=== PATIENT | female | born 1975 | race Caucasian/White ===

== ENCOUNTER 2020-05-25 08:21 | Outpatient (CLI) | payer BC, SELFPAY ==
--- NOTE | 2020-05-25 08:24 | ECG_ITS ---
Measurements Intervals [place] Rate: 69 P: 55 MN: 146 QRS: 7 QRSD: 93 T: 30 QT: 374 QTc: 403 Interpretive Statements SINUS RHYTHM NORMAL ECG Electronically Signed On 05-25-2020 8:34:58 CDT by Iván Funes D.O.
== END 2020-05-25 08:22 | disposition home or self-care (01) ==
LOC: ANHSURGERY 08:24
PROVIDERS: PCP Family Medicine; Visit Provider Podiatrist Foot & Ankle Surgery
DX: Z01.818 Encounter for other preprocedural examination (principal); Z87.891 Personal history of nicotine dependence
CPT/HCPCS: 93005

== ENCOUNTER 2020-05-27 00:59 | Outpatient (CLI) | payer BC, SELFPAY ==
[2020-05-27 18:19] LABS: SARS-CoV-2 RNA PCR Negative
== END 2020-05-27 01:00 | disposition home or self-care (01) ==
LOC: ANHCOVIDDT 00:59
PROVIDERS: PCP Family Medicine; Visit Provider Podiatrist Foot & Ankle Surgery
DX: Z01.812 Encounter for preprocedural laboratory examination (principal); Z20.828 Contact with and (suspected) exposure to other viral communicable diseases
CPT/HCPCS: 87635; C9803; U0003

== ENCOUNTER 2020-05-29 01:53 | Day surgery (SDC) | payer BC, SELFPAY ==
[2020-05-19 08:47] VITALS: BMI 42.0
--- NOTE | 2020-05-28 11:30 | WPDANESEPPF ---
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,Hallux Valgus Patient Data Age: 44 Gender: F Height: 1.63 m Weight: 111.13 kg Allergies Allergy/AdvReac Type Severity Reaction Status Date / Time No Known Allergies Allergy Unverified 05/19/20 08:48 Home Medications Medication Instructions Recorded Confirmed Type ergocalciferol (vitamin D2) 1,250 1,250 mcg PO WEEKLY #14 cap 11/26/19 05/19/20 Rx mcg (50,000 unit) capsule buspirone 5 mg tablet 10 mg PO TID #180 tablet 04/22/20 05/19/20 Rx Patient hx anesthesia problems: none Family hx anesthesia problems: none PMFSH Past Medical History Medical History (Updated 05/28/20 @ 11:30 by Mikey Odonnell DO) Alopecia (capitis) totalis SWETA (generalized anxiety disorder) Hearing loss of both ears Hyperlipidemia Panic disorder Psoriasis of scalp Surgical History Surgical History (Updated 11/11/19 @ 14:00 by Mariel Khoury) Hx of cholecystectomy Family History Family History (Updated 11/11/19 @ 13:55 by Mariel Khoury) Mother Hypertension Family history of elevated blood lipids Family history of diabetes mellitus in first degree relative Father , 63 yrs old Hemodialysis catheter infection Social History Social History (Updated 11/11/19 @ 13:51 by Mariel Khoury) Social History: Smoking packs per day: 1 Smoking cigarettes per day: 20.0 Years smoked: 24 Smoking pack-years: 24.00 Smoking status: Current every day smoker Tobacco type: cigarettes Second hand tobacco smoke exposure: Yes Alcohol intake: never Substance use: current Substance use type: marijuana Last use: 05/18/20 Gender identity (if verbalized by the patient): Female Spiritual care concerns: No Anes - Eval Final PreProcedure Day of Procedure 05/28/20 11:30 Patient weight: morbidly obese Heart: regular rate and rhythm Lungs: clear to auscultation and normal air movement Airway: Mallampati scale class II Neurological: alert and oriented Last oral intake: >/= 8 hours ASA classification: III Emergent: no Anesthetic plan: proceed Anesthesia type and monitoring: general GIVS and standard monitoring Informed Consent: The patient's anesthetic plan and its attendant risks and benefits were discussed with the patient/family/POA. Questions were solicited and answers provided to the satisfaction of the patient/family/POA.
[2020-05-29] VITALS (7 sets, daily range): BP systolic 119–150; BP diastolic 67–96; PULSE 70–99; RESP 14–20; TEMP 36.2–36.3; O2SAT 94–100
--- NOTE | ~2020-05-29 | XR_ITS ---
EXAMINATION: XR surgery orthopedic DATE: 05/29/2020 08:23 INDICATION: Right foot arthrodesis TECHNIQUE: Single dorsal plantar fluoroscopic spot image of the right forefoot was obtained during pr ocedure performed by Dr. Ruano. Radiologist was not present for the imaging or procedure. The amou nt of fluoroscopy time used during this procedure was 0.1 minutes. COMPARISON: None. FINDINGS: Shortening osteotomy across the neck of the right second metatarsal which is fixed with a pair of scr ews. There is secondary mild widening of the metacarpophalangeal joint with expected small amount of intra-articular and adjacent soft tissue gas. Second proximal interphalangeal joint arthrodesis with osteotomies at the head and base of the proximal and middle phalanges respectively. A fixation device spans the joint space. Alignment of the second ray appears essentially anatomic on the provided proj ection. Expected small amount of surrounding soft tissue gas. Normal alignment and joint spaces and r emainder of the visualized forefoot. No fracture. IMPRESSION: 1. Expected appearance post second proximal interphalangeal joint arthrodesis and shortening osteotom y at the neck of the second metatarsal. Reviewed, dictated and finalized at location A. IMPRESSION: 1. Expected appearance post second proximal interphalangeal joint arthrodesis a nd shortening osteotomy at the neck of the second metatarsal.
[2020-05-29] MEDS: LACTATED RINGERS 1,000 ML 30 ML IV CONT ×2 (06:30→08:37)
--- NOTE | 2020-05-29 07:07 | WPDHPUPDATE1 ---
History and Physical Update Update Date/Time: 05/29/20 07:07 History and Physical has been reviewed, including an updated exam of the patient. There are NO changes in the patient's condition. Risks, benefits, and alternatives have been discussed and questions answered. Patient agrees to proceed with procedure.
[2020-05-29] MEDS: ceFAZolin 2 GM/D5W 50 ML 2 GM/50 ML BAG IVPB (07:19)
--- NOTE | 2020-05-29 08:29 | PM.OP ---
Procedure Note - Brief Procedure Note - Brief Date of procedure: 05/29/20 Pre-op diagnosis: Yayo's Toe Def. 2nd digit R Foot,Hallux Valgus Post-op diagnosis: same Procedure performed: 1. Bell Shortening 2nd metatarsal osteotomy right foot 2. Proximal interphalangeal joint arthrodesis 2nd digit right foot 3. Adductor hallucis tenotomy right foot 4. Extensor tenotomy 2nd digit right foot Anesthesia: GLMA Surgeon: Viktor Ruano JR, DPM Estimated blood loss (mL): 1 Complications: No immediate complications Condition: stable Disposition: same day
--- NOTE | 2020-05-29 14:25 | OP_ITS ---
DATE OF PROCEDURE: 05/29/2020 PREOPERATIVE DIAGNOSES: 1. Cole toe deformity, 2nd digit, right foot. 2. Hallux valgus deformity, right foot. PROCEDURE: 1. Bell shortening, 2nd metatarsal osteotomy, right foot. 2. Arthrodesis of the proximal interphalangeal joint of the 2nd digit, right foot. 3. Adductor hallucis tenotomy, right hallux. 4. Extensor digitorum longus tenotomy, 2nd digit, right foot. PATHOLOGY: None. ANESTHESIA: General LMA with local. HEMOSTASIS: Pneumatic ankle tourniquet at 250 mmHg. ESTIMATED BLOOD LOSS: Minimum. MATERIALS USED: One 2.0 mm Shubham partially-threaded cannulated screws, 1 Synetiq Phalinx hammertoe implant, size medium, 3-0 PDS, 4-0 Vicryl, and 4-0 Monocryl. INJECTABLES: 20 mL of Exparel injected preoperatively. COMPLICATIONS: None. PROCEDURE IN DETAIL: Under mild sedation, the patient was brought into the operating room and placed on the operating table in the supine position. A pneumatic ankle tourniquet was placed about the patient's right ankle. Following general anesthesia, local anesthesia was obtained about the right foot utilizing 20 mL of Exparel. The foot was then scrubbed, prepped, and draped in the usual aseptic manner. An Esmarch bandage was then used to exsanguinate the patient's right foot. The pneumatic ankle tourniquet was then inflated. Surgery began in the following manner: Attention was directed to the dorsal aspect of the 2nd digit of the right foot that was noted to be significantly longer than the adjacent digits. An incision was made starting just proximal to the distal interphalangeal joint of the right 2nd digit and extending approximately 3 cm proximal to the head of the 2nd metatarsal. The incision was continued deep down through subcutaneous tissues using sharp and blunt dissection. All bleeders were ligated and cauterized as necessary. At this point, an extensor tenotomy and capsulotomy were performed over the dorsal aspect of the proximal interphalangeal joint of the right 2nd digit. Next, the periosteal and capsular structures were freed from the head of the proximal phalanx as well as the base of the middle phalanx. At this point, the head of the proximal phalanx was resected from the right 2nd digit utilizing an oscillating bone saw. Next, the base of the middle phalanx was also resected utilizing an oscillating bone saw. At this point, a Synetiq Phalinx hammertoe medium implant was placed utilizing standard principles and techniques within the proximal interphalangeal joint of the 2nd digit with excellent compression noted across the arthrodesis site. The implant had a 10-degree plantar flexion at the proximal interphalangeal joint in order to allow a more natural appearance to the 2nd digit. There was significant improvement as far as the length of the 2nd digit compared to preop. At this point, attention was directed to the 2nd metatarsophalangeal joint where a small 1 cm capsulotomy was performed over the dorsal aspect of the 2nd metatarsal head. The periosteum and capsular structures were reflected medially and laterally thus exposing the head of the 2nd metatarsal. At this point, a sagittal bone saw was used to make an osteotomy starting dorsal distal along the most dorsal aspect of the articular cartilage of the 2nd metatarsal aiming the osteotomy proximal to plantar, more or less parallel to the shaft of the 2nd metatarsal. After completion of the osteotomy, the head of the 2nd metatarsal was noted to flow into a more corrected proximal position. Two 2.0 mm partially threaded screws were driven from dorsal to plantar with excellent compression noted. The wound site was then flushed with copious amounts of sterile saline. The dorsal shelf from the distal 2nd metatarsal was resected
== END 2020-05-29 10:25 | disposition home or self-care (01) ==
PROVIDERS: PCP Family Medicine; Visit Provider Podiatrist Foot & Ankle Surgery
PROC: (CPT 28750; principal; 2020-05-29 07:30)
PROC: (CPT 28299; 2020-05-29 07:30)
DX: Q66.89 Other specified congenital deformities of feet (principal); M20.11 Hallux valgus (acquired), right foot; F17.210 Nicotine dependence, cigarettes, uncomplicated; E78.00 Pure hypercholesterolemia, unspecified
CPT/HCPCS: 28240; 28308; 28285; C1713; C9290; J0690; J1100; J2250; J2370; J2405; J2704; J3010; J7120

== ENCOUNTER 2021-07-19 14:21 | Outpatient (CLI) | payer BC, SELFPAY | END 2021-07-19 14:22 | disposition home or self-care (01) | LOC: ANHAUDIO 14:22 | PROVIDERS: PCP Family Medicine; Visit Provider Family Medicine | DX: H90.41 Sensorineural hearing loss, unilateral, right ear, with unrestricted hearing on the contralateral side (principal) | CPT/HCPCS: 92557; 92567 ==

== ENCOUNTER → 2021-07-28 15:48 | Outpatient (CLI) | payer BC, SELFPAY ==
--- NOTE | ~2021-07-28 | MM_ITS ---
EXAMINATION: MM screening prateek BI w kath HISTORY: Screening mammogram TECHNIQUE: Craniocaudal and mediolateral oblique 3-D tomosynthesis images were obtained and synthetic 2-D images were generated. CAD analysis was submitted and interpreted. COMPARISON: No prior mammogram is available for comparison at this institution. BREAST PARENCHYMAL COMPOSITION: The breasts are almost entirely fatty. FINDINGS: There is no evidence of suspicious mass, calcification, or architectural distortion to sugg est malignancy in either breast. There has been no suspicious interval change. IMPRESSION: 1. No mammographic evidence of malignancy. 2. Recommend routine screening mammography in one year. BI-RADS Category 1: Negative Reviewed, dictated and finalized at location A.
== END ==
PROVIDERS: PCP Family Medicine; Visit Provider Family Medicine
DX: Z12.31 Encounter for screening mammogram for malignant neoplasm of breast (principal)
CPT/HCPCS: 77063; 77067

== ENCOUNTER → 2022-07-05 09:29 | Outpatient (CLI) | payer BC, SELFPAY ==
--- NOTE | ~2022-07-05 | XR_ITS ---
XR humerus LT 07/05/2022 09:37 INDICATION: Left arm pain after recent fall PROCEDURE: 2 views left humerus COMPARISON: No prior studies for comparison. FINDINGS: Fracture, dislocation or subluxation is not identified. The soft tissues appear within norm al limits. No foreign bodies are identified. IMPRESSION: 1: NO ACUTE BONE OR JOINT ABNORMALITY IDENTIFIED. Reviewed, dictated and finalized at location A.
== END ==
PROVIDERS: PCP Family Medicine; Visit Provider Family Medicine
DX: S49.92XA Unspecified injury of left shoulder and upper arm, initial encounter (principal)
CPT/HCPCS: 73060

== ENCOUNTER → 2022-11-02 13:52 | Outpatient (CLI) | payer BC, SELFPAY ==
--- NOTE | ~2022-11-02 | MM_ITS ---
EXAMINATION: MM screening prateek BI w kath HISTORY: Screening TECHNIQUE: Craniocaudal and mediolateral oblique 3-D tomosynthesis images were obtained and synthetic 2-D images were generated. CAD analysis was submitted and interpreted. COMPARISON: Comparison to multiple prior studies sequentially, with oldest reviewed study dated 12/2017. BREAST PARENCHYMAL COMPOSITION: There are scattered areas of fibroglandular density. FINDINGS: There is no evidence of suspicious mass, calcification, or architectural distortion to sugg est malignancy in either breast. There has been no suspicious interval change. IMPRESSION: 1. No mammographic evidence of malignancy. 2. Recommend routine screening mammography in one year. BI-RADS Category 1: Negative Reviewed, dictated and finalized at location A. [employer]ICIAN
== END ==
PROVIDERS: PCP Family Medicine; Visit Provider Family Medicine
DX: Z12.31 Encounter for screening mammogram for malignant neoplasm of breast (principal)
CPT/HCPCS: 77063; 77067

== ENCOUNTER 2023-02-03 05:56 | Emergency (ER) | payer BC, SELFPAY ==
--- NOTE | ~2023-02-03 | CT_ITS ---
Non-contrast CT scan of the Abdomen and Pelvis Clinical indication: Right flank pain Technique: 2.5 mm axial scans were obtained through the abdomen and pelvis without intravenous or or al contrast. Dose reduction technique was used on this scan by utilizing automated exposure control a nd iterative reconstruction technique. The dose-length product (DLP) was 511.58 mGy-cm. Findings: Images through the lung bases reveal no abnormalities. Small nonobstructing left lower pole renal stone noted. No right renal stone. No ureteral stone or hy dronephrosis on either side.. The liver, spleen, pancreas, and adrenals appear normal. Cholecystectomy clips are present. There is no aortic aneurysm. There is no evidence of bowel obstruction. Normal appendix. Images through the pelvis were performed. There is no evidence of ascites or lymphadenopathy. Urinary bladder unremarkable. No adnexal mass seen. No ascites. Impression: Small nonobstructing left lower pole renal stone. No other significant findings. Reviewed, dictated and finalized at [facility]. Impression: Small nonobstructing left lower pole renal stone. No other significant findings.
[2023-02-03 05:59] VITALS: BP 138/86; PULSE 91; RESP 18; TEMP 36.3; O2SAT 98
--- NOTE | 2023-02-03 06:19 | ED.FEMALEGU ---
HPI - Female Genitourinary General Chief complaint: Urogenital-Female Stated complaint: flank pain Time Seen by Provider: 02/03/23 06:07 History of Present Illness HPI Narrative: Patient is a 47-year-old female with a history of hyperlipidemia presenting with flank pain. Patient states that for the last several days she has had right flank pain that has been worsening. States that it started out as intermittent and is now constant. States that it is worse with positional changes and taking a deep breath. States that it radiates from her right flank to her right groin. States that she has had a prior cholecystectomy. She denies fevers, chest pain, lightheadedness, shortness of breath, vomiting, diarrhea, constipation, dysuria, hematuria. States that she had a normal bowel movement earlier today. Has not taken anything for pain today. Related Data Allergies Allergy/AdvReac Type Severity Reaction Status Date / Time No Known Allergies Allergy Unverified 11/17/22 07:31 Review of Systems Review of Systems: All systems reviewed & are unremarkable except as noted in HPI and below PMFSH Past Medical History Medical History Alopecia (capitis) totalis SWETA (generalized anxiety disorder) Hearing loss of both ears Hyperlipidemia Panic disorder Psoriasis of scalp Surgical History Surgical History Hx of cholecystectomy Family History Family History Mother Hypertension Family history of elevated blood lipids Family history of diabetes mellitus in first degree relative Father , 63 yrs old Hemodialysis catheter infection Social History Social History Social History: Smoking packs per day: 1 Smoking cigarettes per day: 20.0 Years smoked: 24 Smoking pack-years: 24.00 Smoking status: Current every day smoker Tobacco type: cigarettes Second hand tobacco smoke exposure: Yes Alcohol intake: never Substance use: current Substance use type: marijuana Living arrangements: with family Occupation/Education: occupation Gender identity (if verbalized by the patient): Female Sexual Orientation (if Verbalized by the Patient): Straight or Heterosexual Spiritual care concerns: No Exam Narrative: GENERAL: Well-appearing, well-nourished, and in no acute distress. HEAD: Normocephalic, atraumatic. EYES: PERRLA and EOMI. ENT: Nares clear, no rhinorrhea or epistaxis. Mucous membranes moist. NECK: Supple. CHEST: Clear to auscultation. No respiratory distress. HEART: Regular rate and rhythm. Normal peripheral pulses. ABDOMEN: Soft, nontender, nondistended, +CVA tenderness EXTREMITIES: Normal range of motion. No edema. SKIN: Warm, dry, no rash. NEURO: No focal deficits. Alert and oriented x3. PSYCH: Normal mood and affect. Course Vital Signs Vital signs: Vital Signs Temperature 97.3 F L 02/03/23 05:59 Pulse Rate 91 02/03/23 05:59 Respiratory Rate 18 02/03/23 05:59 Blood Pressure 138/86 02/03/23 05:59 Pulse Oximetry 98 02/03/23 05:59 Oxygen Delivery Room Air 02/03/23 05:59 Temperature 97.3 F L 02/03/23 05:59 Pulse Rate 62 02/03/23 08:18 Respiratory Rate 15 02/03/23 08:18 Blood Pressure 110/62 02/03/23 08:18 Pulse Oximetry 100 02/03/23 08:18 Oxygen Delivery Room Air 02/03/23 05:59 MDM - Female Genitourinary MDM Narrative Medical decision making narrative: Patient is a 47-year-old female presenting with several days of right flank pain. Vitals within normal limits. Patient is well-appearing and in no acute distress. Exam is remarkable for the above. Plan for CT abdomen pelvis, labs, pain control, fluids. CT abdomen pelvis shows no acute abnormalities. Patient is really tender on exam, suspect a muscu
--- NOTE | 2023-02-03 06:21 | PC.NURSE ---
Pt c/o mid back pain that radiates around to her upper abdomen that started 4 days ago. Pain has gotten worse over the past two days. She took ibuprofen yesterday morning without improvement. Pain is worse with movement and deep breathing. She denies fevers, urinary symptoms, vomiting, or diarrhea. +Nausea when pain spikes. She has had her gallbladder removed.
[2023-02-03 06:25] LABS: Basophils Absolute Auto 0.1 K/mm3 (0.0-0.1); Basophils Percent Auto 0.4 % (0.2-1.2); Eosinophils Absolute Auto 0.1 K/mm3 (0-0.3); Eosinophils Percent Auto 0.8 % (0-4.4); Hematocrit 42.8 % (37.0-47.0); Hemoglobin 13.9 g/dL (12.0-15.0); Immature Granulocyte Absolute 0.05 K/mm3 (0.00-0.031); Immature Granulocyte Percent A 0.4 % (0-0.5); Lymphocytes Absolute Auto 2.06 K/mm3 (0.9-3.2); Lymphocytes Percent Auto 15.1 % (18.3-44.2); Mean Corpuscular HGB Conc 32.5 g/dl (32-36); Mean Corpuscular Hemoglobin 29.6 pg (26-34); Mean Corpuscular Volume 91.1 fl (80-100); Mean Platelet Volume 8.9 fl (7.4-10.4); Monocytes Absolute Auto 0.7 K/mm3 (0.1-0.6); Monocytes Percent Auto 5.4 % (2.6-8.5); Neutrophils Absolute Auto 10.6 K/mm3 (1.3-6.7); Neutrophils Percent Auto 77.9 % (45.5-73.1); Platelet Count Result 319 k/mm3 (150-375); Red Cell Distribution Width 12.8 % (11.5-14.5); White Blood Count 13.6 K/mm3 (4.5-10.0)
[2023-02-03 06:26] LABS: Appearance Urine Clear (Clear); Bilirubin Urine Negative (Negative); Blood Urine Negative (Negative); Color Urine Yellow (Yellow); Glucose Urine UA Negative (Negative); Ketones Urine Negative (Negative); Leukocyte Esterase Ur Negative LEU/UL (Negative); Nitrate Urine Negative (Negative); Protein Urine Negative (Negative); Specific Grav Ur 1.018 (1.001-1.035); Urobilinogen Urine 0.2 mg/dL (<2.0)
[2023-02-03] MEDS: HYDROmorphone HCL INJ (*CRX) 1 MG/ML SYR IV PUSH (06:28)
[2023-02-03] MEDS: SODIUM CHLORIDE 0.9% IV 1,000 ML 999 ML IV CONT (06:29)
[2023-02-03 06:30] VITALS: BP 129/66; PULSE 73; RESP 18; O2SAT 99
[2023-02-03 06:33] LABS: Add Urine Microscopic? NO
[2023-02-03 06:39] LABS: Alanine Aminotransferase 23 U/L (6-35); Albumin Level 4.8 g/dL (3.5-5.1); Alkaline Phosphatase 85 U/L (38-126); Anion Gap 6 mmol/L (8-16); Aspartate Amino Transferase 22 U/L (14-36); Bilirubin,Total 0.5 mg/dL (0.2-1.3); Blood Urea Nitrogen 14 mg/dL (7-17); Carbon Dioxide 28 mmol/L (22-30); Chloride 105 mmol/L (98-107); Estimated CRCL calculation 94 ml/min; Estimated Glomerular Filt Rate > 60; Glucose 106 mg/dL (65-110); Lipase 92 U/L (23-300); Potassium 4.8 mmol/L (3.4-5.0); Sodium 139 mmol/L (137-145)
[2023-02-03] MEDS: KETOROLAC 15 MG/ML VIAL (*BKC) IV PUSH (07:03)
[2023-02-03] MEDS: CYCLOBENZAPRINE HCL 10 MG TABLET PO (07:20)
[2023-02-03 08:18] VITALS: BP 110/62; PULSE 62; RESP 15; O2SAT 100
== END 2023-02-03 08:17 | disposition home or self-care (01) ==
PROVIDERS: Emergency Provider Emergency Medicine; PCP Family Medicine
DX: R10.9 Unspecified abdominal pain (principal); E78.5 Hyperlipidemia, unspecified; Z90.49 Acquired absence of other specified parts of digestive tract; F17.210 Nicotine dependence, cigarettes, uncomplicated; N20.0 Calculus of kidney
CPT/HCPCS: 36415; 74176; 80053; 81003; 81025; 83690; 85025; 96361; 96374; 96375; 99284; A9270; J1170; J1885; J7030

== ENCOUNTER 2023-10-26 00:25 | Day surgery (SDC) | payer BC, SELFPAY ==
[2023-09-27 13:05] VITALS: BMI 34.0
--- NOTE | 2023-10-24 10:50 | SUR.PREOP ---
Patient called regarding upcoming procedure. Reviewed preop instructions, new appointment times, and procedure prep.
[2023-10-26 06:19] VITALS: BP 137/80; PULSE 87; RESP 16; TEMP 36.1; O2SAT 100
[2023-10-26] MEDS: LACTATED RINGERS 1,000 ML 150 ML IV CONT (06:37)
[2023-10-26 06:40] LABS: Glucose Point of Care 96 mg/dl (65-105)
--- NOTE | 2023-10-26 07:20 | WPDANESEPPF ---
Anes - Initial Pre Proc Eval Procedure: Operation Date: 10/26/23 07:30 Proposed Procedures p Screening Colonoscopy - Pascual Lentz MD Date/Time: 10/26/23 07:20 Surgeon: Pascual Lentz MD Pre Op Diagnosis: neoplasm screening Patient Data Age: 48 Gender: F Height: 1.63 m Weight: 87.9 kg Last Vital Signs Temp 97 F L 10/26/23 06:19 Pulse 87 10/26/23 06:19 Resp 16 10/26/23 06:19 BP 137/80 10/26/23 06:19 Pulse Ox 100 10/26/23 06:19 O2 Del Method Room Air 10/26/23 06:19 Allergies Allergy/AdvReac Type Severity Reaction Status Date / Time No Known Allergies Allergy Verified 10/26/23 06:17 Home Medications Medication Instructions Recorded Confirmed Type metformin 1,000 mg tablet 1,000 mg PO BID #180 tabs 06/02/23 10/06/23 Rx spironolactone 100 mg tablet 100 mg PO DAILY 06/02/23 10/06/23 History rosuvastatin 5 mg tablet See Rx Instructions .Route 07/31/23 10/06/23 Rx .COMPLEX #30 tabs furosemide 20 mg tablet See Rx Instructions .Route 08/30/23 10/06/23 Rx .COMPLEX #30 tabs tirzepatide 7.5 mg/0.5 mL 7.5 mg (0.5 mL) subcut WEEKLY #2 mL 10/06/23 10/06/23 Rx subcutaneous pen injector (Mounjaro) Laboratory Tests 10/26/23 06:36 POC Capillary Glucose 96 mg/dl (65-105) Patient hx anesthesia problems: none Family hx anesthesia problems: none Results Review: All pre-operative results and documents have been reviewed as part of the pre-operative evaluation. [facility] Past Medical History Medical History Alopecia (capitis) totalis SWETA (generalized anxiety disorder) Hearing loss of both ears Hyperlipidemia Panic disorder Psoriasis of scalp Surgical History Surgical History Hx of cholecystectomy Family History Family History Mother Hypertension Family history of elevated blood lipids Family history of diabetes mellitus in first degree relative Father , 63 yrs old Hemodialysis catheter infection Social History Social History Social History: Smoking packs per day: 1 Smoking cigarettes per day: 20.0 Years smoked: 24 Smoking pack-years: 24.00 Smoking status: Current every day smoker Tobacco type: cigarettes Second hand tobacco smoke exposure: Yes Alcohol intake: never Substance use: current Substance use type: marijuana Other substance usage details: smokes marijuana daily, occasional edible gummie use Lack of Transportation: No Lack of Food: Never True Current Housing: I Have Housing Concerned About Future Housing: No Difficulty Paying Gas/Electric Bills: No Difficulty Paying for Meds: No Currently Unemployed: YES Education: Associate Degree Difficulty w/ Childcare or Family Care: No Living arrangements: with family Occupation/Education: occupation Additional occupation/education comments: [employer] Gender identity (if verbalized by the patient): Female Sexual Orientation (if Verbalized by the Patient): Straight or Heterosexual Spiritual care concerns: No Anes - Eval Final PreProcedure Day of Procedure 10/26/23 07:20 Patient weight: obese Heart: regular rate and rhythm Lungs: clear to auscultation Airway: Mallampati scale class II Neurological: alert and oriented Last oral intake: >/= 8 hours ASA classification: II Emergent: no Anesthetic plan: proceed Anesthesia type and monitoring: general GIVS and standard monitoring Results Review: All pre-operative results and documents have been reviewed as part of the pre-operative evaluation. Informed Consent: The patient's anesthetic plan and its attendant risks and benefits were discussed with the patient/family/POA. Questions were solicited and answers provided to the satisfaction of th
--- NOTE | 2023-10-26 07:33 | PM.HPGS ---
History of Present Illness History of Present Illness Consent: Risks, benefits, and alternatives have been discussed and questions answered. Patient agrees to proceed with procedure. Chief complaint: neoplasm screening Narrative: Margarita Bullard is a 48 year old female here for first screening colonoscopy Review of Systems Constitutional: Constitutional: Denies headache(s) and Denies weakness Eyes: Eyes: Denies blurry vision ENT: Reports Normal hearing present, Denies headache(s) and Denies neck pain Cardiovascular: Cardiovascular: Denies chest pain and Denies dyspnea Respiratory: Respiratory: Denies dyspnea Gastrointestinal: Gastrointestinal: Reports no additional gastrointestinal complaints Genitourinary: Genitourinary: Denies dysuria Musculoskeletal: Musculoskeletal: Denies neck pain Integumentary/Breasts: Skin/Breast: Denies dry skin Neurologic: Reports Normal hearing present, Denies headache(s) and Denies weakness Psychiatric: Psychiatric: Denies anxiety Endocrine: Endocrine: Denies change in body appearance Hematologic/Lymphatic: Hematologic/Lymphatic: Denies easy bleeding Allergic/Immunologic: Allergic/Immunologic: Denies urticaria PMFSH Past Medical History Medical History Alopecia (capitis) totalis SWETA (generalized anxiety disorder) Hearing loss of both ears Hyperlipidemia Panic disorder Psoriasis of scalp Surgical History Surgical History Hx of cholecystectomy Family History Family History Mother Hypertension Family history of elevated blood lipids Family history of diabetes mellitus in first degree relative Father , 63 yrs old Hemodialysis catheter infection Social History Social History Social History: Smoking packs per day: 1 Smoking cigarettes per day: 20.0 Years smoked: 24 Smoking pack-years: 24.00 Smoking status: Current every day smoker Tobacco type: cigarettes Second hand tobacco smoke exposure: Yes Alcohol intake: never Substance use: current Substance use type: marijuana Other substance usage details: smokes marijuana daily, occasional edible gummie use Lack of Transportation: No Lack of Food: Never True Current Housing: I Have Housing Concerned About Future Housing: No Difficulty Paying Gas/Electric Bills: No Difficulty Paying for Meds: No Currently Unemployed: YES Education: Associate Degree Difficulty w/ Childcare or Family Care: No Living arrangements: with family Occupation/Education: occupation Additional occupation/education comments: [employer] Gender identity (if verbalized by the patient): Female Sexual Orientation (if Verbalized by the Patient): Straight or Heterosexual Spiritual care concerns: No Meds Home Medications and Allergies Home Medications Medication Instructions Recorded Confirmed Type metformin 1,000 mg tablet 1,000 mg PO BID #180 tabs 06/02/23 10/06/23 Rx spironolactone 100 mg tablet 100 mg PO DAILY 06/02/23 10/06/23 History rosuvastatin 5 mg tablet See Rx Instructions .Route 07/31/23 10/06/23 Rx .COMPLEX #30 tabs furosemide 20 mg tablet See Rx Instructions .Route 08/30/23 10/06/23 Rx .COMPLEX #30 tabs tirzepatide 7.5 mg/0.5 mL 7.5 mg (0.5 mL) subcut WEEKLY #2 mL 10/06/23 10/06/23 Rx subcutaneous pen injector (Josh) Allergies Allergy/AdvReac Type Severity Reaction Status Date / Time No Known Allergies Allergy Verified 10/26/23 06:17 Vital Signs Vital Signs - 24 hr 10/26/23 06:19 Temperature 97 F L Pulse Rate 87 Respiratory Rate 16 Blood Pressure 137/80 Pulse Oximetry 100 Oxygen Delivery Room Air Exam Const: General: comfortable and no acute distress HENMT: Face/Nose/Sinus: Normal nares present Eyes: G
[2023-10-26 07:50] VITALS: BP 92/60; PULSE 79; RESP 24; O2SAT 99
[2023-10-26 08:00] VITALS: BP 87/53; PULSE 70; RESP 20; O2SAT 99
[2023-10-26 08:10] VITALS: BP 101/63; PULSE 76; RESP 18; O2SAT 100
== END 2023-10-26 08:16 | disposition home or self-care (01) ==
PROVIDERS: PCP Family Medicine; Visit Provider Internal Medicine Gastroenterology
PROC: 0DJD8ZZ Inspection of Lower Intestinal Tract, Via Natural or Artificial Opening Endoscopic (ICD-10-PCS; CPT 45378; principal; 2023-10-26 07:30)
DX: Z12.11 Encounter for screening for malignant neoplasm of colon (principal); K64.8 Other hemorrhoids; K57.30 Diverticulosis of large intestine without perforation or abscess without bleeding; F41.1 Generalized anxiety disorder; E78.5 Hyperlipidemia, unspecified; F41.0 Panic disorder [episodic paroxysmal anxiety]; F17.210 Nicotine dependence, cigarettes, uncomplicated; F12.90 Cannabis use, unspecified, uncomplicated; E66.9 Obesity, unspecified; Z68.33 Body mass index [BMI] 33.0-33.9, adult; Z79.84 Long term (current) use of oral hypoglycemic drugs; Z79.85 Long-term (current) use of injectable non-insulin antidiabetic drugs; Z90.49 Acquired absence of other specified parts of digestive tract
CPT/HCPCS: 45378; 82948; J2704; J7120

== ENCOUNTER 2024-01-25 12:31 | Outpatient (CLI) | payer BC, SELFPAY ==
--- NOTE | ~2024-01-25 | MM_ITS ---
EXAMINATION: MM screening prateek BI w kath HISTORY: Screening mammogram TECHNIQUE: Craniocaudal and mediolateral oblique 3-D tomosynthesis images were obtained and synthetic 2-D images were generated. CAD analysis was submitted and interpreted. COMPARISON: November 02, 2022, July 28, 2021 bilateral screening mammogram examinations BREAST PARENCHYMAL COMPOSITION: There are scattered areas of fibroglandular density. FINDINGS: New focal approximately 5 mm asymmetric density is noted in the outer right breast on crani ocaudal view, apparently in the lower outer quadrant. Diagnostic right mammogram is recommended with ultrasound if required. Otherwise no suspicious mass, architectural distortion, malignant calcification, skin thickening or r etraction of either breast is detected. IMPRESSION: 1. Approximately 5 mm new asymmetric opacity, lower outer right breast 2. Diagnostic right mammogram is recommended with ultrasound if required BI-RADS Category 0: Incomplete: Needs additional imaging evaluation. Reviewed, dictated and finalized at location A.
== END 2024-01-25 12:32 ==
PROVIDERS: PCP Family Medicine; Visit Provider Family Medicine
DX: Z12.31 Encounter for screening mammogram for malignant neoplasm of breast (principal); R92.8 Other abnormal and inconclusive findings on diagnostic imaging of breast
CPT/HCPCS: 77063; 77067

== ENCOUNTER 2024-02-28 07:41 | Outpatient (CLI) | payer BC, SELFPAY ==
--- NOTE | ~2024-02-28 | US_ITS ---
Please refer to diagnostic mammogram report dated 02/28/2024 for details. Reviewed, dictated and finalized at location B.
--- NOTE | ~2024-02-28 | MM_ITS ---
EXAMINATION: MM diagnostic prateek RT w kath HISTORY: Follow-up right breast asymmetries TECHNIQUE: Additional 3-D tomosynthesis images of the right breast were performed and synthetic 2-D i mages were generated. CAD analysis was submitted and interpreted. High resolution Limited right breas t ultrasound was performed. COMPARISON: 01/25/2024 BREAST PARENCHYMAL COMPOSITION: Not dense: There are scattered areas of fibroglandular density. FINDINGS: MAMMOGRAPHIC FINDINGS: Focal asymmetry laterally in the right breast on CC view compresses with spot view. No suspicious mas ses, calcifications or architectural distortion in the right breast to suggest malignancy. ULTRASOUND: Limited right breast ultrasound: Normal heterogeneous echotexture without focal solid or cystic mass. IMPRESSION: 1. No evidence for malignancy in the right breast. 2. Routine yearly screening mammogram and regular clinical breast examination are recommended. BI-RADS Category 1: Negative Reviewed, dictated and finalized at location B. IMPRESSION: 1. No evidence for malignancy in the right breast. 2. Routine yearly screening mammogram and regular clinical breast examination a re recommended. BI-RADS Category 1: Negative
== END 2024-02-28 07:42 ==
LOC: MICIMG 07:42
PROVIDERS: PCP Family Medicine; Visit Provider Physician Assistant
DX: R92.8 Other abnormal and inconclusive findings on diagnostic imaging of breast (principal)
CPT/HCPCS: 76642; 77061; 77065; G0279

== ENCOUNTER 2025-09-19 13:53 | Outpatient (CLI) | payer OTHER, SELFPAY ==
--- NOTE | ~2025-09-19 | MM_ITS ---
EXAMINATION: MM screening prateek BI w kath HISTORY: Screening TECHNIQUE: Craniocaudal and mediolateral oblique 3-D tomosynthesis images were obtained and synthetic 2-D images were generated. CAD analysis was submitted and interpreted. COMPARISON: Comparison to multiple prior studies sequentially, with oldest reviewed study dated , 06/05/2018 BREAST PARENCHYMAL COMPOSITION: Not Dense: There are scattered areas of fibroglandular density. FINDINGS: There is no evidence of suspicious mass, calcification, or architectural distortion to suggest malignancy in either breast. IMPRESSION: 1. No mammographic evidence of malignancy. 2. Recommend routine screening mammography in one year. BI-RADS Category 1: Negative Reviewed, dictated and finalized at location A. [facility]
== END 2025-09-19 13:54 | disposition home or self-care (01) ==
LOC: MICIMG 13:53
PROVIDERS: PCP Family Medicine; Visit Provider Student in an Organized Health Care Education/Training Program
DX: Z12.31 Encounter for screening mammogram for malignant neoplasm of breast (principal)
CPT/HCPCS: 77063; 77067